=== PATIENT | male | born 1955 | race Caucasian/White ===

== ENCOUNTER 2024-08-08 14:56 | Emergency (ER) | payer MEDICARE, SELFPAY ==
[2024-08-08 15:09] VITALS: BP 151/82; PULSE 90; RESP 18; TEMP 36.6; O2SAT 96; BMI 26.1
--- NOTE | 2024-08-08 15:24 | CRLHL7_ITS ---
For Patients: As a result of the Century Cures Act, medical imaging exams and procedure reports are released immediately into your electronic medical record. You may view this report before your referring provider. If you have questions, please contact your health care provider. Indication: Laceration with saw, may have ring bits in 4th finger. Technique: Left hand 2 views. Comparison: None. Findings: Bones: Alignment is normal. No acute fractures or bone lesions. 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 Joint spaces: Unremarkable. Soft tissues: Soft tissue swelling and laceration. No radiopaque foreign body identified. Impression: No definite acute fracture. No radiopaque foreign body identified. Dictated by Suman Remy MD @ 08/08/2024 4:33:33 PM (Electronically Signed)
--- OUTSIDE RECORDS SUMMARY | 2024-08-08 16:33 | XMS_ITS | Clinical Summary ---
Author Organization [facility] Address [address] [place] [address] Care Team Providers Care Solar Lab Technician Name Role Phone Clinician, Not Found MD Primary Care Provider Un available Source Comments You are receiving this document as you are listed as the primary care provider,follow-up provider, or the patient has been referred to you for consultation.This is in compliance with the Medicare andMedicaid EHR Incentive Program,which states Providers who transition their patient to another setting of careor provider of care or refers their patient to another provider of care shouldprovide summary care record for each transition of care or referral. [facility] Allergies No known active allergies Medications metFORMIN (GLUCOPHAGE) 1000 MG tablet Take 1,000 mg by mouth two times a day with meals. Active omeprazole (PRILOSEC) 20 MG capsule Take 20 mg by mouth daily. Take 1 hour before a meal. Active lisinopril (ZESTRIL) 10 MG tablet Take 10 mg by mouth daily. Active Multiple Vitamins-Iron (MULTIVITAMIN/IR ON OR) Active PARoxetine (PAXIL) 20 MG tablet Take 20 mg by mouth daily. Active ferrous sulfate 325 (65 Fe) MG tablet Take 325 mg by mouth daily with breakfast. Active aspirin 325 MG tablet Take 325 mg by mouth daily. Active dilTIAZem ER (TIAZAC) 240 MG 24 hour release capsule Take 240 mg by mouth daily. Active atorvastatin (LIPITOR) 40 MG tablet Take 40 mg by mouth daily. Active Social History Tobacco Use Types Packs/Day Years Used Date Smoking Tobacco: Never Assessed Sex and Gender Information Value Date Recorded Sex Assigned at Not on file Legal Sex Male 2:52 PM [employer] Gender Identity Not on file Sexual Orientation Not on file Last Filed Vital Signs Vital Sign Reading Time Taken Comments Blood Pressure - - Pulse - - Temperature 37 C (98.6 F) 05/13/2021 3:24 PM [employer] Respiratory Rate - - Oxygen Saturation - - Inhaled Oxygen Concentration - - Weight 72.6 kg (160 lb) 05/13/2021 3:24 PM [employer] Height 177.8 cm (5' 10) 05/13/2021 3:24 PM [employer] Body Mass Index 22.96 05/13/2021 3:24 PM [employer] Plan of Treatment Health Maintenance Due Date Last Done Comments Colon Cancer Screening Plan Due 1955 Hep C Screening (Preventive Services) 1955 Medicare Annual Wellness Visit 1955 PSA Screening Discussion 1955 DTaP/Tdap/Td (1 - Tdap) 12/26/1974 Cholesterol 12/26/1990 Pneumococcal 50+ Yrs (1 of 1 - PCV) 12/26/2005 Zoster/Shingles (1 of 2) 12/26/2005 COVID-19 Vaccine ( - 2023-2 5 season) 2024 Influenza (#1) 2024 RSV (1 - 1-dose 75+ series) 12/26/2030 HepA Aged Out No longer eligi ble based on patient's age to complete this topic HepB Aged Out No longer eligi ble based on patient's age to complete this topic Hib Aged Out No longer eligi ble based on patient's age to complete this topic IPV (Polio) Aged Out No longer eligi ble based on patient's age to complete this topic MCV4 Aged Out No longer eligi ble based on patient's age to complete this topic Meningococcal B Aged Out No longer el igible based on patient's age to complete this topic [place] [address] [place] [address] MEDICARE SUPPLEMENT [place] [id number] MEDICARE Care Teams Solar Lab Technician Relationship Specialty Start Date End Date Clinician, Not Found, [place] [address] PCP - General 05/13/21
--- OUTSIDE RECORDS SUMMARY | 2024-08-08 16:33 | XMS_ITS | Continuity of Care Document ---
Author Organization [facility] Address [address] [place] [address] Phone Care Team Providers Care Chief Airline Radio Operator Name Role Phone Marycarmen KELLER, Shiraz Unavailable Unavailable Allergies, Adverse Reactions, Alerts Substance Reaction Status Criticality POTASSIUM CLAVULANATE Anaphylaxis Active No Inf ormation AMOXICILLIN TRIHYDRATE Anaphylaxis Active No In formation Medications Medication Instructions Dosage Effective Dates (start - stop) Status Comments METFORMIN HCL (unknown strength) Not Available - Active ASPIRIN (unknown strength) Not Available - Active ATORVASTATIN CALCIUM (unknown strength) Not Available - Active DILTIAZEM 24HR ER (unknown strength) Not Available - Active FERROUS SULFATE (unknown strength) Not Available - Active LISINOPRIL (unknown strength) Not Available - Active MULTIVITAMINS (unknown strength) Not Available - Active PRILOSEC (unknown strength) Not Available - Active PAROXETINE HCL (unknown strength) Not Available - Active POTASSIUM CHLORIDE (unknown strength) Not Available - Active Procedures Procedure Date Postop Followup Visit Lami/Discectomy, Lumbar HNP - PA 2021 Lami/Discectomy, Lumbar HNP Office/Outpatient Visit,Est, Mod 2021 Office/Outpatient Visit,Est, Mod 2021 Office/Outpatient Visit,New, Mod 2021 Advance Directives Directive Yes / No Effective Date File Name No Information Encounters Encounter Description Practice Location Reason(s) For Visit Diagnoses Date Provider Providers Copied on Encounter [facility], [address], [place], [id number], [place] tel:[phone] [facility] No Information Oct-1 2-202 2 Conroy Shiraz. [facility], [address], [address], [place], [place], [id number] , [place]. tel:[phone] [facility], [address], [facility] [place] [id number], [place] tel:[phone] [facility] Encounter for other specified surgical aftercare 2 Conroy Shiraz. [facility], [address] [place] [address], [address], [place], [place], [id number] , [place]. tel:[phone] Referring Provider: Jasonmeghann [employer], [employer] [employer], [place], [address]. tel:[phone] [facility], [address], [facility] [place], [id number], [place] tel:[phone] [facility] No Information 2 Panvica Cosme. [facility], [address] [place] [address], [address], [place], [place], [id number] , [place]. tel:[phone] Referring Provider: Jason Lemons[employer]vir[employer] [address], [place], [address]. tel:[phone] [facility], [address], [facility] [place], [id number], [place] tel:[phone] [facility] No Information 2 Conroy Shiraz. [facility], [address] [place] [address], [address], [place], [place], [id number] , [place]. tel:[phone] Referring Provider: Jason [employer] [address], [place], [address]. tel:[phone] Office/Outpat ient Visit,Est, Mod [facility], [address], [place], [id number], [place] tel:[phone] [facility] [place] Other intervertebral disc displacement, lumbar region 0 2 Conroy Shiraz. [facility], [address] [place] [address], [address], [place], [place], [id number] , . tel:[phone] Referring Provider: Jason Lemons [email or web address] [facility] [employer], [place], [address]. tel:[phone] Office/Outpat ient Visit,Est, Mod [facility], [address], [facility] [place], [id number], [place] tel:[phone] [facility] Radiculopathy, lumbosacral regionOther intervertebral disc displacement, lumbar region Apr-0 2 Panvica Cosme. [facility] [place], [address] [place] [address], [address], [place], [place], [id number] , . tel:[phone] Referring Provider: Jason Lemons [email or web address] [address] [place], [address]. tel:[phone] Office/Outpat ient Visit,New, Mod [facility], [address], [facility] [place], [id number], [place] tel:[phone] [facility] Radiculopathy, lumbosacral regionOther spondylosis, lumbar region Mar- 2 Panvica Cosme. [facility], [address] [place] [address], [address], [place], [place], [id number] , . tel:[phone] Referring Provider: Jason Lemons [email or web address] [address] [place], [address]. tel:[phone] Family History Family Member Type Diagnosis Age At Onset No Information Payers Payer name Insurance type Covered republican ID Gustavo jauregui(s) [employer] Medicare 2021 CI [id number] Social History Type Description Quantity Date Captured Comments Sex Male Smoking Status No Information Chief Complaint And Reason For Visit No Information Reason For Referral Reason For Referral No Information History Of Present Illness Encounter Date Complaint History Of Prese nt Illness No Information Functional Status Date Functional Assessmen t No Information Instructions Date Instruction Additional Infor mation No Information Assessments Type Assessment Date No Information Patient Care Teams Name Effective Dates (start - stop) Status Members No Information
--- OUTSIDE RECORDS SUMMARY | 2024-08-08 16:33 | XMS_ITS | Clinical Summary ---
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 Active mgxrbjjq-cuyy-GL- calcium-mins 27 mg iron-400 mcg tab Take 1 Tablet by mouth once daily. Active polyethylene glycoL (MIRALAX) 17 gram/dose powderIndications :Constipation, unspecified constipation type Take 17 g oral with 8 oz of water, if no bowel movement in 3 hours, repeat, can repeat 4 time a day. 595 g 022 Active aspirin 325 mg tablet Take 325 mg by mouth once daily with a meal. Active nitroglycerin (NITROSTAT) 0.4 mg sublingual tablet 022 Active ferrous sulfate, 65 mg elemental, tablet Take 325 mg by mouth every 48 hours. Active Coenzyme Q10 10 mg cap Take 1 Capsule (10 mg) by mouth once daily. 0 023 Active acetaminophen (TYLENOL) 325 mg tabletIndications :Combined form of senile cataract, unspecified laterality Take 1-2 Tablets (325-650 mg) by mouth every 4 hours if needed for Pain. Maximum dose of acetaminophen is 4000 mg from all sources in 24 hours. 50 Tablet 023 Active artificial tears, peg 400-propylene glycol, (Systane, propylene glycoL,) 0.4-0.3 % drop ophthalmic Place 1 Drop into right eye two times daily. Active blood-glucose meterIndications: Type 2 diabetes mellitus without complication, without long-term current use of insulin (HC) Dispense meter covered by pt ins. E11.9 NIDDM type II - Test 1 time/day 1 Each 023 Active CPAPIndications:O SA (obstructive sleep apnea) CPAP machine for home use at pressure 10cmw, nasal mask x1/3month with nasal pillows x 2/mo 1 Each 024 Active hydroxychloroquin e (PLAQUENIL) 200 mg tabletIndications :Rheumatoid arthritis with positive rheumatoid factor, involving unspecified site (HC) TAKE 2 TABLETS BY MOUTH ONCE DAILY 180 Tablet 1 024 Active lancets (OneTouch Delica Plus Lancet) 30 gauge miscIndications:T ype 2 diabetes mellitus without complication, without long-term current use of insulin (HC) DIRECTED. TEST 2 TIMES PER DAY. 200 Each 3 024 Active gabapentin (NEURONTIN) 300 mg capsuleIndication s:Diabetic polyneuropathy associated with type 2 diabetes mellitus (HC) Take 1 Capsule (300 mg) by mouth two times daily. 60 Capsule 5 024 Active glipiZIDE extended-release (GLUCOTROL XL) 2.5 mg Extended-Release tabletIndications :Type 2 diabetes mellitus without complication, without long-term current use of insulin (HC) Take 1 Tablet (2.5 mg) by mouth once daily before a meal. 90 Tablet 1 024 Active lisinopriL (PRINIVIL; ZESTRIL) 10 mg tabletIndications :Essential hypertension TAKE 1 TABLET BY MOUTH EVERY DAY 90 Tablet 2 024 Active PARoxetine (PAXIL) 20 mg tabletIndications :Mild episode of recurrent major depressive disorder TAKE 1 TABLET BY MOUTH EVERY MORNING 90 Tablet 024 Active atorvastatin (LIPITOR) 80 mg tabletIndications :History of abdominal aortic aneurysm (AAA) repair TAKE 1 TABLET BY MOUTH ONCE DAILY. 90 Tablet 2 024 Active metFORMIN (GLUCOPHAGE) 500 mg tabletIndications :Type 2 diabetes mellitus without complication, without long-term current use of insulin (HC) TAKE 2 TABLETS (1,000 MG) BY MOUTH TWICE A DAY WITH MEALS 360 Tablet 024 Active loteprednol (LOTEMAX) 0.5 % ophthalmic suspensionIndicat ions:Keratitis sicca INSTILL 1 DROP INTO BOTH EYES TWICE A DAY 5 mL 1 025 Active blood sugar diagnostic (OneTouch Ultra Test) stripIndications: Type 2 diabetes mellitus without complication, without long-term current use of insulin (HC) TEST TWO TIMES PER DAY. 200 Each 3 025 Active dilTIAZem CD (CARDIZEM CD) 240 mg extended release 24 hr capsuleIndication s:Essential hypertension TAKE 1 CAPSULE BY MOUTH DAILY 90 Capsule 2 025 Active FLUoxetine (PROZAC) 40 mg capsuleIndication s:Mild episode of recurrent major depressive disorder Take 1 Capsule (40 mg) by mouth once daily in the morning. 30 Capsule 11 025 Active blood sugar diagnostic (Blood Glucose Test) stripIndications: Type 2 diabetes mellitus without complication, without long-term current use of insulin (HC) Test two times per day. 200 Each 023 2024 Discontinued dilTIAZem CD (CARDIZEM CD) 240 mg extended release 24 hr capsuleIndication s:Essential hypertension TAKE 1 CAPSULE BY MOUTH DAILY 90 Capsule 024 2024 Discontinued Active Problems Problem Noted Date Diagnosed Date Osteopenia of multiple sites 07/19/2024 Other osteoarthritis of spine 07/19/2024 Pulmonary nodule, right 07/19/2024 Lung nodules 07/11/2024 Rheumatoid arthritis with po sitive rheumatoid factor, involving unspecified site 06/24/2023 Aorto-iliac atherosclerosis 06/24/2023 Type 2 diabetes mellitus wit h diabetic cataract, without long-term current use of insulin 06/24/2023 Hyperlipidemia 10/25/2021 Sleep apnea 10/25/2021 Overview (10/25/2021): wears CPAP at home History of abdominal aortic aneurysm (AAA) repai r 10/25/2021 Myopia of both eyes with astigmatism and presbyo ian 06/17/2021 Nuclear senile cataract of both eyes 06/17/2021 Family history of colon cancer 11/16/2019 Benign prostatic hyperplasia with weak urinary s tream 11/16/2019 Overview (10/25/2021): 11/16/19: cystoscopy: trilobar hyperplasia without obstructing median lobe, grade 1 trabeculation, on Flomax and Proscar. 11/16/19: Transrectal ultrasound: 14 cm prostate. 02/22/2020: AUASI: 25. QOL 2. BPH / bladder medications: tamsulosin and finasteride. How often do you feel you haven't emptied your bladder? 3 Urinate less than two hours after you finished urinating? 5 Stopped and started again several times when urinating? 3 Difficult to postpone urinating? 2 Weak stream? 4 Strain to start? 4 Nocturia... 4 02/22/20: Urolift x 4 03/26/20: [place] [employer] symptom score 8. QOL 1. Post void residual 48 ml. Stop tamsulosin (Flomax) and finasteride (Proscar). 05/28/20: Minimal lower urinary tract symptoms. QOL 1. Not taking bladder / prostate medications. 02/06/21: [place] [employer] symptom score 8. QOL 1. Not taking bladder / prostate medications. Right renal mass 09/21/2019 Overview (03/18/2022): 11/16/19: 1.6 cm solid lesion of the RIGHT kidney is not significantly changed most concerning for renal cell carcinoma. 02/22/20: Unchanged 1.6 cm right renal mass 09/01/20: 2 cm enhancing RIGHT renal mass 10/18/20: RIGHT partial nephrectomy. Path: Clear cell renal cell carcinoma, negative margins, 1.7 cm in diameter, histologic grad 3 02/06/21: Ct abdomen pelvis with and without contrast: 1. Status post partial RIGHT lower pole nephrectomy. No evidence of enhancing or solid renal mass. No urinary tract filling defect on delayed images. 2. Other stable findings as above. 02/05/22: CT abdomen / pelvis: no evidence of tumor recurrence. 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 Impairment of balance 05/06/2015 Resolved Problems Problem Noted Date Diagnosed Date Resolved Date Abdominal aortic aneurysm 12/16/2013 Encounters Date Type Department Care Team Description 08/05/2024 Travel 07/19/2024 10:00 AM 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 Office Visit [facility] [address] [place] [address] Candido Botello MD Medicare ANNUAL (subsequent) Visit 07/19/2024 Travel 07/15/2024 Travel 07/11/2024 Telephone [facility] [address] [place] [address] Candido Botello MD Results 07/11/2024 Orders Only [facility] [phone] Imaging, [facility] <No scans attached> 07/08/2024 Refill [facility] [address] [place] [address] Candido Botello MD Refill Request (Onetouch Ultra Test, Diltiazem Cd) 06/26/2024 Refill [facility] [address] [place] [address] Finn Velasco MD Refill Request (Loteprednol) 05/20/2024 Refill [facility] [address] [place] [address] Candido Botello MD Refill Request (Lisinopril, Paroxetine, Atorvastatin, Metformin) 05/09/2024 Refill [facility] [address] [place] [address] Candido Botello MD Refill Request (glipiZIDE ) from Last 3 Months Immunizations Name Administration Dates Next Due COVID-19 vaccine (Moderna 100mcg/0.5mL) PF, MDV 05/23/2021,08/08/2020,07/10/2020 Influenza, High-dose Inactivated 03/11/2021 Influenza, IIV3 (Age >=3 years) 04/22/2013,03/17 Influenza, IIV4 03/09/2020, 9,03/15/2018,2016,04/21/2016,05/06/2015 Influenza, Inactivated AIIV4 (Age 65+ Years) Preserv Free 04/24/2023,03/18/2022 Influenza, Inactivated IIV3 (Age 65+ Years) Preserv Free 04/20/2024 Pneumococcal Poly,23-Valent (Pneumovax) 11/16/2019,05/06/2015 Pneumococcal conj 13-Valent (Prevnar 13) 04/05/2021 Tdap 12/28/2017 Zoster (Shingrix-RZV, recombinant) 11/19/2018, Zoster (Zostavax-ZVL, live) 03/17/2012 Social History Tobacco Use Types Packs/Day Years Used Date Smoking Tobacco: Former Cigarettes 1 40 1 2019 Smokeless Tobacco: Never Tobacco Cessation:Counseling Given: Not Answered Alcohol Use Standard Drinks/Week Comments Not Currently 0 (1 standard drink = 0.6 oz pur e alcohol) 5.5 years sober 05/25/23 PHQ-2 Answer Date Recorded PHQ-2 TOTAL SCORE 0 07/19/2024 Social Connections Answer Date Recorded Do you often feel lonely or isolated from those around you? 0 04/14/2024 Financial Resource Strain Answer Date R ecorded Difficulty of Paying Living Expenses 3 04/14/2024 Difficulty of Paying Living Expenses Not on file 04/14/2024 Food Insecurity Answer Date Recorded Do you worry your food will run out before you are able to buy more? 1 04/14/2024 Transportation Needs Answer Date Record ed Does lack of transportation keep you from medica l appointments? 1 04/14/2024 Does lack of transportation keep you from work, meetings or getting things that you need? 1 04/14/2024 Housing Stability Answer Date Recorded What is your housing situation today? 1 04/14/2024 Utilities Answer Date Recorded Do you have trouble paying f or utilities (for example, heat, electricity, water, phone)? 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 Pulse 60 07/19/2024 10:03 AM 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 Temperature 35.9 C (96.7 F) 09/24/2022 8:29 AM CDT Respiratory Rate 16 09/14/2023 11:11 AM CDT Oxygen Saturation 98% 04/14/2024 9:22 AM CDT Inhaled Oxygen Concentration - - Weight 83.5 kg (184 lb) 07/19/2024 10:03 AM 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 Height 173.4 cm (5' 8.25) 07/19/2024 10:[address] Body Mass Index 27.77 07/19/2024 10:03 AM 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 Plan of Treatment Upcoming Encounters Date Type Department Care Team (Late st Contact Info) Description 08/09/2024 10:00 AM 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 Office Visit [facility] [address] [place] [address] [place] [address] [facility] [place] [address] 09/14/2024 2:00 PM CDT Office Visit [facility] [address] [place] [address] Jhonatan Martinez MD [address] [place] [address] Health Maintenance Due Date Last Done Comments RSV vaccine for adults or (1 - Risk 60-74 years 1-dose series) 2015 COVID-19 vaccine series ( season) 2024 05/23/2021, 08/08/2020, 07/10/[address] (for lung CA) ag e 50-80 07/11/2025 07/11/2024, 07/08/2023, 03/29/2021 (Completed outside of [facility]) BMI (ht and wt on same day) for age 18+ 07/19/2025 07/19/2024, 12/25/2023, 11/17/2023, Additional history exists Depression screening for age 12+ 07/19/2025 07/19/2024, 05/20/2024, 06/26/2023, Additional history exists Medicare Wellness for age 65+ 07/20/2025, 06/24/2023, 04/08/2022 Pneumococcal series for age 50+ (3 of 3 - PCV20 or PCV21) 04/05/2026 04/05/2021, 11/16/2019, 05/06/2015 Lipids for age 45-75 03/18/2027 03/18/2022 Tetanus booster 12/29/2027 12/28/2017 Colonoscopy through age 75 01/13/203001/13 (Completed outside of [facility]) Tdap Completed 12/28/2017 Zoster (shingles) series for age 50+ Completed 11/19/2018, 03/29/2018, 03/17/2012 Hepatitis C screening for ag e 18-79 Completed 04/08/2022 AAA screening age 65-74 Completed 12/25/2023, 12/24 Influenza for age 65+ Completed 04/20/2024 , 04/24/2023, 03/18/2022, Additional history exists Medical Devices Implanted Type Area Locomotive Repairer Diesel Device Identifier Shelf Expiration Date Model / Serial / Lot Iol [place] +18.5 Tecnis [id number] - [id number] Implanted:Qty: 1 on 09/24/2022 by Finn Velasco MD at [facility] Opthalmology Implants Right: Eye [employer] 06/01/2027 [id number] 18.5 / [id number] / Iol [place] +20 Tecnis [id number] - [id number] Implanted:Qty: 1 on 09/10/2022 by Finn Velasco MD at [facility] Left: Eye [employer] 02/23/2027 [id number] 20.0 / [id number] / Procedures Procedure Name Priority Date/Time Associated Diagnosis Comments CT CHEST SCREENING LOW DOSE WO CONTRAST Routine 07/11/2024 8:57 AM 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 Encounter for screening for malignant neoplasm of respiratory organs US AORTA ILIACS IVC WITH DUPLEX Routine 12/25/2023 9:57 AM CDT History of abdominal aortic aneurysm (AAA) repair Infrarenal abdominal aortic aneurysm (AAA) without rupture ANTI HCV Routine 04/08/2022 10:45 AM CDT Need for hepatitis C screening test LIPID PANEL W REFLEX MEASURED LDL Routine 03/18/2022 8:26 AM CDT Type 2 diabetes mellitus without complication, without long-term current use of insulin (HC) from Last 3 Months or Most Recently Relevant to Health Maintenance Results * CT CHEST SCREENING LOW DOSE WO CONTRAST (07/11/2024 8:57 AM 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) Anatomical Region Laterality Modality Computed Tomogra phy 07/11/2024 8:57 AM 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 Impressions 07/11/2024 12:15 PM 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 IMPRESSION: 1. Stable small right apical pulmonary nodules. 2. Minimal emphysematous changes. 3. Severe coronary calcified atherosclerosis. 4. Unchanged dilatation of the ascending aorta, measuring 4.3 cm in diameter. 5. Additional stable incidental findings, as detailed in the body of the report. LungRADS CATEGORY: 2 : Benign. -Solid nodule(s): <6 mm on baseline screening; or new nodule <4 mm RADIOLOGIST RECOMMENDATION(S): Continue annual screening with low-dose CT chest in 12 months. Narrative 07/11/2024 12:15 PM 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 EXAM: LOW DOSE LUNG CANCER SCREENING CT CHEST LOCATION: [facility] DATE: 07/11/2024 INDICATION: Lung cancer screening. History of smoking. High risk patient. COMPARISON: CTs, most recently 07/08/2023. TECHNIQUE: Low-dose lung cancer screening non-contrast CT chest. Dose reduction techniques were used. Images assessed using LungRADS 2021 criteria. FINDINGS: NODULES: Stable 4 mm right upper lobe nodule (series 6, image 96). Stable 3 mm right upper lobe nodule (series 6, image 102). LUNGS AND PLEURA: Minimal apical predominant emphysematous changes. Mild bibasilar dependent atelectasis. MEDIASTINUM: Cardiac size is within normal limits. No pericardial effusion. Unchanged dilatation of the ascending aorta, measuring 4.3 cm in diameter. No lymphadenopathy. CORONARY ARTERY CALCIFICATION: Severe. LIMITED UPPER ABDOMEN: 3.3 cm hypoattenuating observation in the spleen is partially visualized, but appears unchanged since 08/13/2022. This should be benign, likely a cyst or hemangioma. Small left upper quadrant splenules. MUSCULOSKELETAL: Diffuse osteopenia. Moderate degenerative changes of the lower thoracic spine. Unchanged mild wedge compression deformities of T7 and T10. Few chronic rib fracture deformities bilaterally. 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 No articular surface collapse. No aggressive osseous lesions. us Candido Botello MD CT Final Resul t * US AORTA ILIACS IVC WITH DUPLEX (12/25/2023 9:57 AM CDT) Anatomical Region Laterality Modality AORTA, Abdomen Ultrasound 12/25/2023 9:20 AM CDT Narrative 12/26/2023 5:48 PM CDT VASCULAR ULTRASOUND REPORT YESY KEVIN : 1955 Study Date: 12/25/2023 9:20:20 AM Age: 67 years Tech: KBN Gender: M Referring MD: GINO DAWSON Site: [facility] Study performed: Aorta EVAR Indication for study: Follow-up EVAR. Study Quality: Excellent TECHNIQUE: The abdominal aorta and iliac arteries were examined with duplex ultrasound, color-flow and spectral Doppler. Bypass grafts and/or stents if present are evaluated per exam protocol. Vessel size, peak systolic velocity (PSV) and velocity ratios if applicable, were obtained and documented at sites per exam protocol. IMPRESSION: 1. Endovascular stent graft is in place. Patient is status post endovascular aneurysm repair. 2. Maximum residual aneurysm sac is 3.2 cm. 3. The main body and right and left limbs of the endograft are patent without evidence of stenosis. 4. No endoleak is visualized. COMPARISON: Compared to prior study 12/24/22, there is no significant change. FINDINGS: There is no evidence for endoleak. Patent endograft. MEASUREMENTS: + +--------+-------+ +---------+ TRV (cm) AP (cm) PSV (cm/s) Phasicity + +--------+-------+ +---------+ Suprarenal aorta 2.10 2.10 154 + +--------+-------+ +---------+ Juxtarenal aorta 2.20 2.10 103 + +--------+-------+ +---------+ Right common iliac 2.20 2.00 143 + +--------+-------+ +---------+ Left common iliac 1.70 1.80 73 + +--------+-------+ +---------+ ENDOGRAFT +-----+ + STENT PSV (cm/s) +-----+ + PRE 103 +-----+ + PRX 98 +-----+ + MID 97 +-----+ + DST 84 +-----+ + + + + LIMB PSV (cm/s) + + + RT PRX 143 + + + RT MID 84 + + + RT DST 127 + + + RT POST STENT 112 + + + LT PRX 71 + + + LT MID 80 + + + LT DST 75 + + + LT POST STENT 161 + + + + +--------+-------+ TRV (cm) AP (cm) + +--------+-------+ RESID SAC DIAMETER 3.20 2.30 + +--------+-------+ RT LIMB DIAMETER 2.20 2.00 + +--------+-------+ LT LIMB DIAMETER 1.70 1.80 + +--------+-------+ Faraz Mena MD. Electronically signed on 12/26/2023 5:48:39 PM This study was performed and interpreted by a service accredited by the Intersocietal Accreditation Commission (IAC/Vascular), [email or web address] Report generated by [facility]. Final Procedure Note Faraz Mena MD - 12/26/2023 VASCULAR ULTRASOUND REPORT YESY KEVIN : 1955 Study Date: 12/25/2023 9:20:20 AM Age: 67 years Tech: CALVIN Gender: M Referring MD: GINO BECERRA GOSHEN Site: [facility] Study performed: Aorta EVAR Indication for study: Follow-up EVAR. Study Quality: Excellent TECHNIQUE: The abdominal aorta and iliac arteries were examined with duplexultrasound, color-flow and spectral Doppler. Bypass grafts and/or stentsif present are evaluated per exam protocol. Vessel size, peak systolicvelocity (PSV) and velocity ratios if applicable, were obtained anddocumented at sites per exam protocol. IMPRESSION: 1. Endovascular stent graft is in place. Patient is status postendovascular aneurysm repair. 2. Maximum residual aneurysm sac is 3.2 cm. 3. The main body and right and left limbs of the endograft are patentwithout evidence of stenosis. 4. No endoleak is visualized. COMPARISON: Compared to prior study 12/24/22, there is no significant change. FINDINGS: There is no evidence for endoleak. Patent endograft. MEASUREMENTS: + +--------+-------+ +---------+ TRV (cm) AP (cm) PSV (cm/s) Phasicity + +--------+-------+ +---------+ Suprarenal aorta 2.10 2.10 154 + +--------+-------+ +---------+ Juxtarenal aorta 2.20 2.10 103 + +--------+-------+ +---------+ Right common iliac 2.20 2.00 143 + +--------+-------+ +---------+ Left common iliac 1.70 1.80 73 + +--------+-------+ +---------+ ENDOGRAFT +-----+ + STENT PSV (cm/s) +-----+ + PRE 103 +-----+ + PRX 98 +-----+ + MID 97 +-----+ + DST 84 +-----+ + + + + LIMB PSV (cm/s) + + + RT PRX 143 + + + RT MID 84 + + + RT DST 127 + + + RT POST STENT 112 + + + LT PRX 71 + + + LT MID 80 + + + LT DST 75 + + + LT POST STENT 161 + + + + +--------+-------+ TRV (cm) AP (cm) + +--------+-------+ RESID SAC DIAMETER 3.20 2.30 + +--------+-------+ RT LIMB DIAMETER 2.20 2.00 + +--------+-------+ LT LIMB DIAMETER 1.70 1.80 + +--------+-------+ Faraz Mena MD. Electronically signed on 12/26/2023 5:48:39 PM This study was performed and interpreted by a service accredited by theIntersocietal Accreditation Commission (IAC/Vascular),[email or web address] Report generated by [facility]. Final us Gino WHITTINGTON US Final Re sult * ANTI HCV [14511.2] (04/08/2022 10:45 AM CDT) HEPATITIS C ANTIBODY Non-React karen Non-React karen 04/10/2022 6:27 PM CDT [facility] Comment:Antibodies to HCV no t detected; does not exclude the possibility of exposure to HCV. Blood BLOOD SPECIMEN / Unknown Venipuncture / Unknown 04/08/2022 10:45 AM CDT 04/08/2022 10:54 AM CDT us Candido Botello MD SEND OUTS Final Resul t [facility] [address] [place] [address], [place] * (ABNORMAL) LIPID PANEL W REFLEX MEASURED LDL (03/18/2022 8:26 AM CDT) CHOLESTEROL,TOTAL 142 100 - 199 mg/dL 03/19/2022 4:16 PM CDT [facility] TRIGLYCERIDES 121 <150 mg/dL 03/19/2022 4:16 PM CDT [facility] HDL CHOLESTEROL 39(L) >40 mg/dL 4:16 PM CDT [facility] NON-HDL CHOLESTEROL 103 <145 mg/dl 03/19/2022 4:16 PM CDT [facility] CHOL/HDL RATIO 3.64 <4.50 03/19/2022 4:16 PM CDT [facility] LDL CHOLESTEROL 79 <=130 mg/dL 03/19/2022 4:16 PM CDT [facility] VLDL CHOLESTEROL 24 <=30 mg/dL 03/19/2022 4:16 PM CDT [facility] PROVIDER ORDERED STATUS RANDOM 03/19/2022 4:16 PM CDT [facility] Blood BLOOD SPECIMEN / Unknown Venipuncture / Unknown 03/18/2022 8:26 AM CDT 03/18/2022 8:26 AM CDT Candido Botello MD CHEMISTRY Final Resul t [facility] 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
--- OUTSIDE RECORDS SUMMARY | 2024-08-08 16:33 | XMS_ITS | Clinical Summary ---
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 Role Phone Clive Baker MD Unavailable Candido Botello MD Primary Care Provider Allergies Active Allergy Reactions Criticality Noted Date Comments Amoxicillin-Pot Clavulanate Anaphylaxis High 022 Medications aspirin (ASA) 325 MG tablet Take 325 mg by mouth daily Active diltiazem ER (DILT-XR) 240 MG 24 hr ER beaded capsule Take 1 capsule by mouth daily 1 Active ferrous sulfate (FEROSUL) 325 (65 Fe) MG tablet Take 325 mg by mouth every other day Active blood glucose (NO BRAND SPECIFIED) test strip Apply 1 each topically 2 Active lisinopril (ZESTRIL) 10 MG tablet TAKE 1 TABLET BY MOUTH DAILY FOR BLOOD PRESSURE 2 Active metFORMIN (GLUCOPHAGE) 500 MG tablet TAKE 2 TABLETS BY MOUTH TWICE A DAY WITH MEALS 1 Active multivitamin, therapeutic (THERA-VIT) TABS tablet Take 1 tablet by mouth Active omeprazole (PRILOSEC) [address] capsule Take 20 mg by mouth daily Active PARoxetine (PAXIL) 20 MG tablet Take 1 tablet by mouth every morning 2 Active potassium 99 MG TABS Take 99 mg by mouth daily Active nitroGLYcerin (NITROSTAT) 0.4 MG sublingual tabletIndication s:Abnormal stress test For chest pain place 1 tablet under the tongue every 5 minutes for 3 doses. If symptoms persist 5 minutes after 1st dose call 911. 25 tablet 3 2 Active atorvastatin (LIPITOR) 80 MG tablet Take 80 mg by mouth daily Active acetaminophen (TYLENOL) 325 MG tablet Take 650 mg by mouth every 6 hours as needed for mild pain Active levofloxacin (LEVAQUIN) 500 MG tabletIndication s:Sepsis with acute hypoxic respiratory failure without septic shock, due to unspecified organism (H),Pneumonia of both lungs due to infectious organism, unspecified part of lung Take 1 tablet (500 mg) by mouth daily 7 tablet 3 Active Active Problems Problem Noted Date Diagnosed Date Pneumonia of both lungs due to infectious organism, unspecified part of lung 08/13/2022 Sepsis with acute hypoxic re spiratory failure without septic shock, due to unspecified organism 08/13/2022 Social History Tobacco Use Types Packs/Day Years Used Date Smoking Tobacco: Former Cigarettes 1.5 40 Smokeless Tobacco: Never PHQ-2 Answer Date Recorded PHQ-2 Score 0 06/27/2021 Adolescent Education Answer Date Record ed Getting School Help Needed Not on file 03/07 Sex and Gender Information Value Date Recorded Sex Assigned at Male 09/19/2021 10:28 AM CDT Legal Sex Male 10:32 AM 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 Gender Identity Male 09/19/2021 10:28 AM CDT Sexual Orientation Not on file Last Filed Vital Signs Vital Sign Reading Time Taken Comments Blood Pressure 131/66 08/15/2022 8:04 AM 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 Pulse 60 08/15/2022 8:04 AM 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 Temperature 36.7 C (98 F) 08/15/2022 8:04 AM 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 Respiratory Rate 20 08/15/2022 8:04 AM 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 Oxygen Saturation 94% 08/15/2022 8:04 AM 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 Inhaled Oxygen Concentration - - Weight 78.7 kg (173 lb 9.6 oz) 08/14/2022 4:39 P M 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 Height 177.8 cm (5' 10) 08/13/2022 4:05 AM 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 Body Mass Index 24.91 08/13/2022 4:05 AM 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 Plan of Treatment Health Maintenance Due Date Last Done Comments ADVANCE CARE PLANNING 1955 ANNUAL REVIEW OF HM ORDERS 1955 CT COLONOGRAPHY 1955 FIT 1955 FLEX SIG 1955 LIPID 1955 sDNA (Cologuard) 1955 COLONOSCOPY 12/26/1965 COLORECTAL CANCER SCREENING 12/26/1965 HEPATITIS C SCREENING 12/26/1973 FALL RISK ASSESSMENT 12/26/2020 MEDICARE ANNUAL WELLNESS VISIT 04/08/2023 04/08/2022 LUNG CANCER SCREENING 08/14/2023 08/13/2022, 021 COVID-19 Vaccine ( season) 2024 05/23/2021, 08/08/2020, 07/10/2020 INFLUENZA VACCINE (#1) 2024 , 03/11/2021, 03/09/2020, Additional history exists PHQ-2 (once per calendar year) 2024 06/27/2021 GLUCOSE 08/15/2025 08/15/2022, 03/0 08/2022, 08/15/2022, Additional history exists Pneumococcal Vaccine: 50+ Years (3 of 3 - PCV20 or PCV21) 04/05/2026 04/05/2021, 11/16/2019, 05/06/2015 DTAP/TDAP/TD IMMUNIZATION (2 - Td or Tdap) 12/29/2027 12/28/2017 RSV VACCINE (1 - 1-dose 75+ series) 12/26/2030 ZOSTER IMMUNIZATION Completed 11/19/2018, 03/29/2018, 03/17/2012 HPV IMMUNIZATION Aged Out No longer e ligible based on patient's age to complete this topic MENINGITIS IMMUNIZATION Aged Out No l onger eligible based on patient's age to complete this topic Procedures Procedure Name Priority Date/Time Associated Diagnosis Comments GLUCOSE BY METER Routine 08/15/2022 2:02 AM 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 CT CHEST PE ABDOMEN PELVIS W CONTRAST STAT 08/13/2022 5:38 AM 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 from Last 3 Months or Most Recently Relevant to Health Maintenance Results * (ABNORMAL) Glucose by meter (08/15/2022 2:02 AM 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) GLUCOSE BY METER POCT 122(H) 70 - 99 mg/dL 08/15/2022 2:08 AM 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 [facility] POC Blood, Capillary BLOOD SPECIMEN / Unknown 08/15/2022 2:02 AM 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 08/15/2022 2:08 AM 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 us Az Rubio MD LAB - SHELBI POCT Final Result [facility] [address] Lab (1st floor, no room number) [place] [address], [facility] [phone] * CT Chest (PE) Abdomen Pelvis w Contrast (08/13/2022 5:38 AM 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) Anatomical Region Laterality Modality Chest, SUBRAD CT BODY, UMP CT CHEST, RAD CT Computed Tomography 08/13/2022 5:38 AM 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 Impressions 08/13/2022 6:13 AM 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 IMPRESSION: 1. Negative for pulmonary embolism. 2. Prominent diffuse infiltrate in the left lung with some consolidation. Infiltrate/consolidation to a lesser extent right lower lung. Findings most compatible with acute pneumonitis. 3. Mild aneurysmal dilatation ascending thoracic aorta measuring 4.3 cm. 4. No acute findings in the abdomen or pelvis. 5. 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 6. Stable postoperative changes related to aortobiiliac stent graft repair of an abdominal aortic aneurysm. 7. Prostatic enlargement. Narrative 08/13/2022 6:13 AM 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 EXAM: CT CHEST PE, ABDOMEN AND PELVIS WITH CONTRAST LOCATION: [facility] DATE/TIME: 08/13/2022, 5:38 AM INDICATION: Sepsis. COMPARISON: Abdomen and pelvis CT from 12/24/2021. TECHNIQUE: CT chest pulmonary angiogram and routine CT abdomen pelvis with IV contrast. Arterial phase through the chest and venous phase through the abdomen and pelvis. Multiplanar reformats and MIP reconstructions were performed. Dose reduction techniques were used. CONTRAST: 88 mL Isovue 370. FINDINGS: ANGIOGRAM CHEST: Pulmonary arteries are normal caliber and negative for pulmonary emboli. Thoracic aorta is negative for dissection. No CT evidence of right heart strain. LUNGS AND PLEURA: Diffuse infiltrate left lung with some dense consolidation in the midlung. More mild patchy infiltrate at the right lung base with some consolidation in the right middle lobe medially. Overall findings compatible with acute pneumonitis. No pleural effusions. MEDIASTINUM/AXILLAE: Scattered hilar or mediastinal lymph nodes favored to be reactive in nature. Normal heart size. No pericardial effusion. Mild aneurysmal dilatation ascending thoracic aorta measuring 4.3 cm. Descending thoracic aorta is normal in caliber. Esophagus is grossly negative. CORONARY ARTERY CALCIFICATION: Moderate. HEPATOBILIARY: Normal. PANCREAS: Normal. SPLEEN: Spleen is normal in size. 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 ADRENAL GLANDS: Normal. KIDNEYS/BLADDER: Mild cortical scarring lower pole both kidneys. No hydronephrosis. Bladder is unremarkable. BOWEL: Normal. LYMPH NODES: Normal. VASCULATURE: Stable postoperative changes related to aortobiiliac stent graft repair of abdominal aortic aneurysm. PELVIC ORGANS: Mild prostatic enlargement. Prostatic seed implants in place. MUSCULOSKELETAL: Old bilateral rib fractures. Degenerative changes throughout the spine. Mild compression fractures at the inferior endplate of the T7 vertebral body and superior endplate of the T10 vertebral body. Procedure Note Jasson Reyes MD - 08/13/2022 EXAM: CT CHEST PE, ABDOMEN AND PELVIS WITH CONTRAST LOCATION: [facility] DATE/TIME: 08/13/2022, 5:38 AM INDICATION: Sepsis. COMPARISON: Abdomen and pelvis CT from 12/24/2021. TECHNIQUE: CT chest pulmonary angiogram and routine CT abdomen pelvis withIV contrast. Arterial phase through the chest and venous phase through theabdomen and pelvis. Multiplanar reformats and MIP reconstructions wereperformed. Dose reduction techniques were used. CONTRAST: 88 mL Isovue 370. FINDINGS: ANGIOGRAM CHEST: Pulmonary arteries are normal caliber and negative forpulmonary emboli. Thoracic aorta is negative for dissection. No CTevidence of right heart strain. LUNGS AND PLEURA: Diffuse infiltrate left lung with some denseconsolidation in the midlung. More mild patchy infiltrate at the rightlung base with some consolidation in the right middle lobe medially.Overall findings compatible with acute pneumonitis. No pleural effusions. MEDIASTINUM/AXILLAE: Scattered hilar or mediastinal lymph nodes favored greg reactive in nature. Normal heart size. No pericardial effusion. Mildaneurysmal dilatation ascending thoracic aorta measuring 4.3 cm.Descending thoracic aorta is normal in caliber. Esophagus is grossly negative. CORONARY ARTERY CALCIFICATION: Moderate. HEPATOBILIARY: Normal. PANCREAS: Normal. SPLEEN: Spleen is normal in size. Stable 3 cm low-attenuation lesion inthe spleen. ADRENAL GLANDS: Normal. KIDNEYS/BLADDER: Mild cortical scarring lower pole both kidneys. Nohydronephrosis. Bladder is unremarkable. BOWEL: Normal. LYMPH NODES: Normal. VASCULATURE: Stable postoperative changes related to aortobiiliac stentgraft repair of abdominal aortic aneurysm. PELVIC ORGANS: Mild prostatic enlargement. Prostatic seed implants inplace. MUSCULOSKELETAL: Old bilateral rib fractures. Degenerative changesthroughout the spine. Mild compression fractures at the inferior endplateof the T7 vertebral body and superior endplate of the T10 vertebralbody. IMPRESSION: 1. Negative for pulmonary embolism. 2. Prominent diffuse infiltrate in the left lung with some consolidation.Infiltrate/consolidation to a lesser extent right lower lung. Findingsmost compatible with acute pneumonitis. 3. Mild aneurysmal dilatation ascending thoracic aorta measuring 4.3cm. 4. No acute findings in the abdomen or pelvis. 5. 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 6. Stable postoperative changes related to aortobiiliac stent graftrepair of an abdominal aortic aneurysm. 7. Prostatic enlargement. 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
--- NOTE | 2024-08-08 16:46 | ED.WOUNDLAC ---
HPI - Wound/Laceration General Chief Complaint: Laceration/Wound Stated Complaint: Cut left hand Time Seen by Provider: 08/08/24 15:41 History of Present Illness HPI narrative: This 68-year-old male comes in with laceration to his left hand. He was using a miter saw and his left hand on the dorsal aspect but caught into the blade. His wounds just involved the skin. His tetanus status is up-to-date. He has a laceration across the MP joints of the middle, ring, and little finger. He also has a laceration on the proximal aspect of the ring finger. Related Data Home Medications ?Medication ?Instructions ?Recorded ?Confirmed aspirin 325 mg tablet 325 mg PO DAILY 08/08/24 08/08/24 atorvastatin 40 mg tablet 40 mg PO DAILY 08/08/24 08/08/24 diltiazem HCl 240 mg capsule,24 240 mg PO DAILY 08/08/24 08/08/24 hr,extended release ferrous gluconate 324 mg (37.5 mg 324 mg PO DAILY 08/08/24 08/08/24 iron) tablet gabapentin 300 mg capsule 300 mg PO BID 08/08/24 08/08/24 glipizide 2.5 mg tablet 2.5 mg PO DAILY 08/08/24 08/08/24 hydroxychloroquine 200 mg tablet 200 mg PO DAILY 08/08/24 08/08/24 lisinopril 10 mg tablet 10 mg PO DAILY 08/08/24 08/08/24 metformin 1,000 mg tablet 1,000 mg PO BID 08/08/24 08/08/24 omeprazole magnesium 20 mg 20 mg PO DAILY 08/08/24 08/08/24 tablet,delayed release (Prilosec OTC) paroxetine HCl 20 mg tablet 20 mg PO DAILY 08/08/24 08/08/24 Allergies Allergy/AdvReac Type Severity Reaction Status Date / Time amoxicillin (From Augmentin) Allergy Severe Anaphylaxis Verified 08/08/24 15:05 clavulanic acid (From Allergy Severe Anaphylaxis Verified 08/08/24 15:05 Augmentin) Review of Systems Status of ROS: Reports: 10 or more systems reviewed and unremarkable except as noted in History and below Narrative: Constitutional: No fevers, no weight gain or loss. Eyes: No discharge. No vision changes. HENT: No congestion, no sore throat, no ear pain. Cardiovascular: No chest pain, no palpitations. Respiratory: No shortness of breath, no wheezes, no cough. Gastrointestinal: No abdominal pain, no vomiting, no diarrhea. Genitourinary: No dysuria, no hematuria. Musculoskeletal: Normal range of motion. Skin: No rashes, no pruritis. Neurological: No dizziness, weakness, sensory change, speech change. Endo/Heme/Allergies: No bruising or bleeding. No polydipsia. Pysch: no suicidality, no anxiety, no insomnia. All other systems reviewed and are negative. Exam Narrative: Exam Narrative: Constitutional: Well-developed, well-nourished, no acute distress. HEENT: Normocephalic, atraumatic. Neck: Normal range of motion. Nontender. Supple. Heart: Intact distal pulses. Lungs: No chest discomfort. No wheezes, rhonchi, or rales. Abdomen: Nontender. Back: Normal range of motion. Extremities: Normal range of motion. Left hand has a 7 cm laceration on the dorsal aspect overlying the MP joints of the middle, ring, and little fingers. He also has a irregular flap type laceration on the proximal aspect of the left ring finger. This measures about 3 cm in length. Skin: Intact. No rash. Warm. No erythema or pallor. Neurologic: No altered sensation. No weakness. Alert and oriented. Psychiatric: No suicidality. No anxiety or depression. No insomnia. Nursing notes and vitals signs are reviewed. Const: Vital Signs, click to edit/add: Vital Signs - 24 hr 08/08/24 15:09 Temperature 97.8 F Pulse Rate [Pulse Oximeter] 90 Respiratory Rate 18 Blood Pressure [Ri ght Upper Arm] 151/82 H Pulse Oximetry 96 Oxygen Delivery Me thod Room Air Course Vital Signs Vital signs: Initial Vital Signs Temperature 97.8 F 08/08/24 15:09 Temperature Source Temporal Artery Scan 08/08/24 15:09 Pulse Rate 90 08/08/24 15:09 Respiratory Rate 18 08/08/24 15:09 Blood Pressure 151/82 H 08/08/24 15:09 Blood Pressure Mean 105 08/08/24 15:09 Pulse Oximetry 96 08/08/24 15:09 Oxygen Delivery Method Room Air 08/08/24 15:09 Vital Signs Temperature 97.8 F 08/08/24 15:09 Pulse Rate 90 08/08/24 15:09 Respiratory Rate 18 08/08/24 15:09 Blood Pressure 151/82 H 08/08/24 15:09 Pulse Oximetry 96 08/08/24 15:09 Oxygen Delivery Method Room Air 08/08/24 15:09 Temperature 97.8 F 08/08/24 15:09 Pulse Rate 90 08/08/24 15:09 Respiratory Rate 18 08/08/24 15:09 Blood Pressure 151/82 H 08/08/24 15:09 Pulse Oximetry 96 08/08/24 15:09 Oxygen Delivery Method Room Air 08/08/24 15:09 MDM - Wound/Laceration MDM Narrative Medical decision making narrative: This patient comes in with a laceration to his left hand as described above. His tetanus status is up-to-date. After anesthesia with 1% lidocaine the wounds were explored to their base. He is not showing any sign of deeper tissue injury. There is no tendon dysfunction or nerve dysfunction. X-ray of the left hand is obtained and also appears with no acute findings. I did place a total of 12 sutures using 4.0 Prolene suture. These were placed in interrupted fashion to approximate these 2 wounds. He has a few other superficial abrasions that do not need repair. Instructions regarding wound care were given and the need to return to urgent care clinic in 7-10 days for suture removal. Discharge Plan Discharge Clinical Impression: Laceration Patient Disposition: Home, Self-Care Condition: Improved Additional Instructions: Keep wound clean and dry. Follow-up for suture removal in 7-10 days. Return if worsening. Prescriptions: No Action metformin 1,000 mg tablet 1,000 mg PO BID omeprazole magnesium [Prilosec OTC] 20 mg tablet,delayed release (DR/EC) 20 mg PO DAILY lisinopril 10 mg tablet 10 mg PO DAILY paroxetine HCl 20 mg tablet 20 mg PO DAILY ferrous gluconate 324 mg (37.5 mg iron) tablet 324 mg PO DAILY gabapentin 300 mg capsule 300 mg PO BID aspirin 325 mg tablet 325 mg PO DAILY diltiazem HCl 240 mg capsule,extended release 24hr 240 mg PO DAILY atorvastatin 40 mg tablet 40 mg PO DAILY glipizide 2.5 mg tablet 2.5 mg PO DAILY hydroxychloroquine 200 mg tablet 200 mg PO DAILY Follow Up/Referrals: Candido Botello MD [Primary Care Provider] - Stand Alone Forms: [employer] Info Instructions
== END 2024-08-08 17:01 | disposition home or self-care (01) ==
PROVIDERS: Emergency Provider Emergency Medicine Emergency Medical Services; PCP Family Medicine
DX: S61.412A Laceration without foreign body of left hand, initial encounter (principal); W27.0XXA Contact with workbench tool, initial encounter
CPT/HCPCS: 12002; 73120; 99283; 99284